=== PATIENT | female | born 1950 | race Caucasian/White ===

== ENCOUNTER → 2016-10-19 | Day surgery (SDC) | payer OTHER ==
[~2016-10-19] MED LIST: AMLODIPINE-BEN1 EAC1 PO; BYSTOLIC10 MG PO; CRESTOR10 MG PO; VITAMIN D350000 UNIT PO; ZYRTEC10 M2 PO
--- NOTE | ~2016-10-19 | OR ---
Unit #: [id number] #: [id number] Patient: CASSIE GOLDEN [id number] [address] [id number] O MR#: [id number] NAME: CASSIE GOLDEN ROOM: Date of Procedure: 10/19/2016 Admission Date: 10/19/2016 Surgeon: Jarek Wang III, M.D. : 1950 Attending Physician: Jarek Wang III, M.D. Referring Physician: Jarek Wang III, M.D. Primary Care Physician: Carmina Royal M.D. OPERATIVE REPORT PREOPERATIVE DIAGNOSIS Screening colonoscopy. POSTOPERATIVE DIAGNOSES Sigmoid diverticulosis. PROCEDURE PERFORMED Colonoscopy to cecum. ANESTHESIA MAC. SPECIMENS None. COMPLICATIONS None apparent. INDICATIONS FOR PROCEDURE This is a 66-year-old lady, who is referred for screening colonoscopy. She has not had a prior colonoscopy. She has no family history of colon cancer and has had no change in bowel habits. DESCRIPTION OF PROCEDURE After consent was obtained, the patient was brought to the endoscopy suite and placed in the left lateral decubitus position. We titrated the above sedation. I performed a rectal exam and did not feel any masses. The scope was placed within the rectal vault. Air was insufflated. I navigated the scope all the way to the cecum without any difficulty. She had a fairly tortuous sigmoid colon. She also had moderate sigmoid diverticulosis. There were no polyps or masses and there were no mucosal irregularities. The scope was retroflexed within the rectum, no other masses were seen. The scope was then carefully withdrawn. The patient tolerated the procedure without any problems and returned to the recovery room in stable condition. Dictated by... Jarek Wang III, M.D. VCL/vannessal Unit #: [id number] #: [id number] Patient: CASSIE GOLDEN TD: 10/19/2016 22:08 JOB #: [id number] OPERATIVE REPORT Page 1 of 1 X Jarek Wang III, MD X PROCEDURE OPERATIVE NOTE
== END | disposition home or self-care (01) ==
LOC: COPS 05:41
DX: Z12.11 Encounter for screening for malignant neoplasm of colon (principal); K57.30 Diverticulosis of large intestine without perforation or abscess without bleeding; I10 Essential (primary) hypertension; E66.9 Obesity, unspecified; F41.9 Anxiety disorder, unspecified; Z68.36 Body mass index [BMI] 36.0-36.9, adult; Z88.2 Allergy status to sulfonamides; Z79.899 Other long term (current) drug therapy; Z90.710 Acquired absence of both cervix and uterus; Z98.890 Other specified postprocedural states
CPT/HCPCS: J2250